=== PATIENT | female | born 1965 | race Two or more races ===

== ENCOUNTER 2024-05-06 17:31 | Emergency (ER) | payer OTHER ==
[~2024-05-06] VITALS: Ht 157.5 cm; Wt 90.7 kg
[2024-05-06 17:47] VITALS: BP 107/71; O2SAT 97
[2024-05-06] MEDS ORDERED: LEVOTHYROXINE25 MCG PO (17:47)
[2024-05-06] MEDS ORDERED: ORPHENADRINE CITRATE 30 MG/ML AMPUL IM STA (18:35)
== END 2024-05-06 19:51 | disposition home or self-care (01) ==
LOC: ER 17:33
DX: M25.562 Pain in left knee (principal); Z88.6 Allergy status to analgesic agent